=== PATIENT | male | born 1990 | race Caucasian/White ===

== ENCOUNTER 2020-07-05 20:31 | Emergency (ER) | payer OTHER ==
[~2020-07-05] VITALS: Ht 177.8 cm; Wt 75.0 kg
[2020-07-05 20:45] VITALS: TEMP 97.4
[2020-07-05] MEDS ORDERED: AMOXICILLIN 8751 TAB PO (21:14)
[2020-07-05 21:33] VITALS: BP 127/74; PULSE 78
== END 2020-07-05 21:32 | disposition home or self-care (01) ==
LOC: COL.ER 20:31
DX: S00.511A Abrasion of lip, initial encounter (principal); W54.0XXA Bitten by dog, initial encounter